=== PATIENT | male | born 1965 | race Caucasian/White ===

== ENCOUNTER 2017-07-01 10:25 | Outpatient (CLI) | payer OTHER ==
--- NOTE | 2017-07-01 18:05 | Diagnostic Imaging Report ---
RAISA LINDER [facility] [address] [facility] [address] [address] Report Submission Date: July 01, 2017 1:04:03 PM CDT Patient Study Name: HARDEEP ECHOLS Date: July 01, 2017 10:31:20 AM CDT Modality Type: DX Gender: M Description: SPINE : 69 Institution: [facility] Physician: RAISA LINDER 3-view lumbar spine Clinical history: L-SPINE, LEFT LEG NUMBNESS FOR A FEW DAYS, NO KNOWN INJURY Findings: Examination of the lumbar spine AP, lateral and lateral coned down views demonstrates the vertebrae to the anatomically aligned. There are small anterior and lateral osteophytes in the mid and lower lumbar vertebrae. Pedicles are intact and the paravertebral soft tissues are within normal limits. There is no evident fracture. Impression: 1. Spondylosis. 2. No fracture. Electronically signed on July 01, 2017 1:04:03 PM CDT by: Arvind NEFF
== END 2017-07-01 10:26 ==
LOC: RAD 10:25
PROVIDERS: ATTEND Physician Assistant
DX: R20.0 Anesthesia of skin (principal)
CPT/HCPCS: 72100